=== PATIENT | female | born 1985 | race Caucasian/White ===

== ENCOUNTER → 2019-12-18 12:00 | Observation (INO) ==
[2019-12-18 09:56] LABS: Bilirubin,Urine Negative (Negative); Blood,Urine Negative (Negative); Clarity,Urine Clear (Clear); Color,Urine Light-Yellow (Yellow); Glucose,Urine (UA) Normal (Normal); Ketones,Urine Negative (Negative); Leukocyte Esterase,Urine Negative (Negative); Nitrite,Urine Negative (Negative); Protein,Urine Negative (Neg-Trace); Urobilinogen,Urine Normal (Normal)
== END | disposition home or self-care (01) ==
LOC: 1NENULAB
PROVIDERS: ADMIT Obstetrics & Gynecology; ATTEND Obstetrics & Gynecology

== ENCOUNTER 2020-02-09 07:57 | Inpatient (IN) ==
[2020-02-09] MEDS ORDERED: Clindamycin 900 MG/50 ML 900 MG/50 ML IV.SOLN IVPB ONE (11:54)
[2020-02-09] MEDS ORDERED: Metoclopramide 10 MG/2 ML VIAL IVP ONE (11:54)
[2020-02-09] MEDS ORDERED: Famotidine 20 MG/2 ML VIAL IVP ONE (11:54)
[2020-02-09] MEDS ORDERED: Gentamicin 430 MG in 0.9 % Sodium Chloride 100 ML IVPB ONE (11:54)
[2020-02-09] MEDS ORDERED: Ringers Solution, Lactated 1,000 ML ONE (11:58)
[2020-02-09] MEDS ORDERED: Ringers Solution, Lactated 1,000 ML IVC SCH ×2 (12:00→16:30)
[2020-02-09] MEDS ORDERED: *HR* HYDROmorphone 20 MG/20 ML PCA IVC PRN (12:14)
[2020-02-09 12:34] LABS: Basophils % 0.3 %; Eosinophils # 0.1 K/mcL (0.0-0.6); Eosinophils % 0.6 %; Hematocrit 37.4 % (35.3-44.9); Hemoglobin 12.7 g/dL (11.5-15.4); Immature Granulocytes % 0.4 % (0-4); Lymphocytes # 1.7 K/mcL (0.6-4.6); Lymphocytes % 16.4 %; Mean Corpuscular Hemoglobin 30.6 pg (28.0-33.3); Mean Corpuscular Volume 90.1 fL (83.0-100.0); Monocytes # 0.6 K/mcL (0.0-1.3); Monocytes % 5.6 %; Neutrophils # 7.8 K/mcL (1.6-8.9); Platelet Count 226 K/mcL (140-400); Red Blood Count 4.15 M/mcL (3.82-4.97); Red Cell Distribution Width 13.4 % (11.5-14.5); Segmented Neutrophils % 76.7 %; White Blood Count 10.2 K/mcL (4.3-11.1)
[2020-02-09 13:02] LABS: Amphetamine Screen,Urine Negative ng/mL (Cutoff=1000); Barbiturate Screen,Urine Negative ng/mL (Cutoff=200); Benzodiazepines Screen,Urine Negative ng/mL (Cutoff=200); Cannabinoid Screen,Urine Negative ng/mL (Cutoff = 50); Cocaine Screen,Urine Negative ng/mL (Cutoff= 300); Opiate Screen,Urine Negative ng/mL (Cutoff=300); Phencyclidine Screen,Urine Negative ng/mL (Cutoff=25)
[2020-02-09] MEDS ORDERED: *HR* Morphine Sulfate/PF 10 MG/10 ML AMPUL ONE (13:20)
[2020-02-09] MEDS ORDERED: Oxytocin 20 units/ LR 1000 mL 20 UNIT/1,000 ML BAG IVC ONE (13:32)
[2020-02-09] MEDS ORDERED: Ondansetron 4 MG/2 ML VIAL ONE (13:46)
[2020-02-09] MEDS ORDERED: Dexamethasone 4 MG/ML VIAL ONE (13:46)
[2020-02-09] MEDS ORDERED: Acetaminophen IV 1,000 MG/100 ML INFUS..BTL ONE (14:35)
[2020-02-09] MEDS ORDERED: Metoclopramide 10 MG/2 ML VIAL IVP PRN (16:17)
[2020-02-09] MEDS ORDERED: *HR* OxyCODONE/APAP 5/325 TABLET PO PRN (16:17)
[2020-02-09] MEDS ORDERED: Ondansetron 4 MG/2 ML VIAL IVP PRN (16:17)
[2020-02-09] MEDS ORDERED: Rho Immune Globulin 1,500 UNIT SYRINGE IM ONE (16:17)
[2020-02-09] MEDS ORDERED: Simethicone 80 MG TAB.CHEW PO PRN (16:17)
[2020-02-09] MEDS ORDERED: Sennosides 8.6 MG TABLET PO PRN (16:17)
[2020-02-09] MEDS ORDERED: Oxytocin 20 units/ LR 1000 mL 20 UNIT/1,000 ML BAG IVC SCH (16:30)
[2020-02-09] MEDS: Ibuprofen 600 MG TABLET PO PRN (21:25)
[2020-02-10 06:06] LABS: Basophils % 0.2 %; Eosinophils % 0.1 %; Hemoglobin 11.3 g/dL (11.5-15.4); Immature Granulocytes % 0.4 % (0-4); Lymphocytes # 1.9 K/mcL (0.6-4.6); Lymphocytes % 13.7 %; Mean Corpuscular HGB Conc 32.3 g/dL (31.6-35.5); Mean Corpuscular Hemoglobin 29.4 pg (28.0-33.3); Mean Corpuscular Volume 90.9 fL (83.0-100.0); Mean Platelet Volume 12.1 fL (9.4-12.4); Monocytes # 0.9 K/mcL (0.0-1.3); Monocytes % 6.4 %; Neutrophils # 11.1 K/mcL (1.6-8.9); Platelet Count 239 K/mcL (140-400); Red Blood Count 3.85 M/mcL (3.82-4.97); Red Cell Distribution Width 13.2 % (11.5-14.5); Segmented Neutrophils % 79.2 %
[2020-02-10 08:13] VITALS: BP 120/72
[2020-02-10] MEDS: Ibuprofen 600 MG TABLET PO PRN (08:40)
[2020-02-10] MEDS ORDERED: Prenatal Vit/FA 1 EACH TABLET PO SCH (09:00)
== END 2020-02-10 16:41 | disposition home or self-care (01) | DRG 788 ==
LOC: 1NENULAB 07:57 → 1NENUPED 17:50
PROVIDERS: ADMIT Student in an Organized Health Care Education/Training Program; ATTEND Student in an Organized Health Care Education/Training Program

== ENCOUNTER 2020-10-31 14:24 | Observation (INO) ==
[2020-10-31 16:09] LABS: Basophils # 0.1 K/mcL (0.0-0.2); Basophils % 0.8 %; Eosinophils # 0.1 K/mcL (0.0-0.6); Eosinophils % 0.7 %; Hematocrit 41.3 % (35.3-44.9); Immature Granulocytes % 0.2 % (0-4); Lymphocytes # 2.3 K/mcL (0.6-4.6); Lymphocytes % 27.2 %; Mean Corpuscular HGB Conc 31.5 g/dL (31.6-35.5); Mean Corpuscular Hemoglobin 28.5 pg (28.0-33.3); Mean Corpuscular Volume 90.6 fL (83.0-100.0); Mean Platelet Volume 11.1 fL (9.4-12.4); Monocytes # 0.7 K/mcL (0.0-1.3); Monocytes % 7.7 %; Neutrophils # 5.4 K/mcL (1.6-8.9); Platelet Count 295 K/mcL (140-400); Red Blood Count 4.56 M/mcL (3.82-4.97); Red Cell Distribution Width 12.6 % (11.5-14.5); Segmented Neutrophils % 63.4 %; White Blood Count 8.6 K/mcL (4.3-11.1)
[2020-10-31 16:30] LABS: BUN/Creatinine Ratio 16 (6-26); Blood Urea Nitrogen 12 mg/dL (6-20); Calcium 9.6 mg/dL (8.6-10.3); Carbon Dioxide 25 mEq/L (23-29); Chloride 103 mEq/L (98-107); Glucose 111 mg/dL (70-105); Osmolality,Calculated 286 (280-300); Potassium 3.9 mEq/L (3.5-5.1); Sodium 138 mEq/L (136-145); eGFR For African Americans > 60 (> 60); eGFR For Non-African Americans > 60 (> 60)
[2020-10-31] MEDS ORDERED: *HR* OxyCODONE Immed Rel 5 MG TABLET PO ONE (17:16)
[2020-10-31] MEDS ORDERED: *HR* FentaNYL (PF) 100 MCG/2 ML VIAL IVP ONE (17:19)
[2020-10-31] MEDS ORDERED: Ibuprofen 600 MG TABLET PO ONE (17:34)
[2020-10-31] MEDS ORDERED: *HR* Propofol 200 MG/20 ML VIAL IVP ONE (20:07)
[2020-10-31] MEDS ORDERED: *HR* FentaNYL (PF) 100 MCG/2 ML VIAL ONE (20:07)
[2020-10-31] MEDS ORDERED: *HR* Rocuronium Bromide 50 MG/5 ML VIAL ONE (20:09)
[2020-10-31] MEDS ORDERED: *HR* Succinylcholine 200 MG/10 ML VIAL IVP ONE (20:09)
[2020-10-31] MEDS ORDERED: Lidocaine -MPF 2% 2 ML VIAL ONE (20:09)
[2020-10-31] MEDS ORDERED: Ondansetron 4 MG/2 ML VIAL ONE (20:09)
[2020-10-31] MEDS ORDERED: Doxycycline 100 MG in 0.9 % Sodium Chloride Mini Bag 100 ML IVPB ONE (20:41)
[2020-10-31] MEDS ORDERED: Ketorolac 30 MG/ML VIAL ONE (21:59)
[2020-10-31] MEDS ORDERED: *HR* HYDROmorphone PF 0.5 MG/0.5 ML SYRINGE IVP PRN (22:22)
[2020-10-31] MEDS ORDERED: Promethazine 6.25 MG in Water for inj. (sterile) 20 ML IVPB PRN (22:22)
[2020-10-31] MEDS ORDERED: Ondansetron 4 MG/2 ML VIAL IVP PRN (22:22)
[2020-10-31] MEDS ORDERED: *HR* OxyCODONE Immed Rel 5 MG TABLET PO PRN (22:22)
[2020-10-31] MEDS ORDERED: Ibuprofen 600 MG TABLET PO PRN (22:44)
[2020-11-01 03:51] VITALS: BP 108/53
[2020-11-01] MEDS ORDERED: Prenatal Vit/FA 1 EACH TABLET PO SCH (09:00)
== END 2020-11-01 02:30 | disposition home or self-care (01) ==
LOC: EMEROOARM 14:24 → 1NENUOBS 14:24
PROVIDERS: ADMIT Obstetrics & Gynecology; ATTEND Obstetrics & Gynecology